=== PATIENT | male | born 1960 | race Caucasian/White ===

== ENCOUNTER → 2017-10-14 | Outpatient (CLI) | payer OTHER ==
[~2017-10-14] MED LIST: BYST5TAB2 PO; COZA50TA PO; CYCL-36 PO; MEDR4PAK3 PO; OXYC-360 PO; PRAD150C PO
[2017-10-14 10:28] LABS: BICARBONATE 26.3 MEQ/L (21.0-32.0); BLOOD UREA NITROGEN 20 MG/DL (7-18); CHLORIDE 108 MEQ/L (98-107); CHOLESTEROL 122 MG/DL (120-200); GLOMERULAR FILTRATION RATE 57 ML/MIN (>89); GLUCOSE,FASTING 106 MG/DL (74-99); SODIUM (NA) 143 MEQ/L (136-145); TRIGLYCERIDES 121 MG/DL (42-150)
[2017-10-14 10:32] LABS: CHOLESTEROL/ HDL RATIO 3.48 RATIO; LDL CHOLESTEROL 63 MG/DL (0-99)
[2017-10-14 15:48] LABS: HEMOGLOBIN A1C 6.4 % (4.3-6.0)
== END ==
LOC: PLAB 06:40
PROVIDERS: ATTEND Internal Medicine
DX: E78.2 Mixed hyperlipidemia (principal); I10 Essential (primary) hypertension; R73.01 Impaired fasting glucose
CPT/HCPCS: 36415; 80048; 80061; 83036

== ENCOUNTER → 2017-10-20 | Outpatient (CLI) | payer OTHER ==
[2017-10-20 12:37] LABS: FREE T4 1.16 NG/DL (0.76-1.46)
== END ==
LOC: PLAB 07:09
PROVIDERS: ATTEND Internal Medicine
DX: E03.9 Hypothyroidism, unspecified (principal); Z12.5 Encounter for screening for malignant neoplasm of prostate
CPT/HCPCS: 36415; 84153; 84439; 84443